=== PATIENT | male | born 1945 | race Caucasian/White ===

== ENCOUNTER 2021-01-01 11:23 | Emergency (ER) | payer OTHER ==
[~2021-01-01] VITALS: Ht 190.5 cm; Wt 92.7 kg
[2021-01-01 11:38] VITALS: Ht 190.5 cm; Wt 92.7 kg
[2021-01-01] MEDS ORDERED: CYMBALTA20 MG PO (11:41)
[2021-01-01] MEDS ORDERED: BAYER CHEWABLE81 MG PO (11:41)
[2021-01-01] MEDS ORDERED: LISINOPRIL10 MG PO (11:41)
[2021-01-01] MEDS ORDERED: ZYLOPRIM100 MG PO (11:42)
[2021-01-01] MEDS ORDERED: GABAPENTIN100 MG PO (11:42)
[2021-01-01] MEDS ORDERED: NORVASC5 MG PO (11:43)
[2021-01-01] MEDS ORDERED: TRAZODONE HCL150 MG PO (11:43)
[2021-01-01] MEDS ORDERED: METOPROLOL TART50 MG PO ×2 (11:43→12:07)
[2021-01-01 12:06] LABS: BASOPHILS 1.3 % (0-2); EOSINOPHILS 1.9 % (0-7); HEMATOCRIT 42.1 % (42.0-54.0); HEMOGLOBIN 14.2 g/dL (13.5-17.5); LYMPHOCYTES 22.2 % (15-50); MCHC 33.6 g/dL (31.0-37.0); MEAN PLATELET VOLUME 9.1 fL (7.4-10.4); MONOCYTES 8.6 % (2-11); PLATELET COUNT 140 10x3/uL (130-400); RBC 4.43 10x6/uL (4.20-6.10); RDW 15.8 % (11.5-14.5); WBC 6.5 10x3/uL (4.8-10.8)
[2021-01-01] MEDS ORDERED: CYMBALTA60 MG PO (12:07)
[2021-01-01 12:17] LABS: CALC OSMOLALITY 286 mosm/kg (275-300); CALCIUM 8.6 mg/dL (8.5-10.1); CARBON DIOXIDE 27.2 mmol/L (21.0-32.0); CHLORIDE - SERUM 108 mmol/L (98-107); CREATININE - SERUM 1.1 mg/dL (0.6-1.3); GLUCOSE 135 mg/dL (74-106); POTASSIUM - SERUM 4.1 mmol/L (3.5-5.1); SODIUM 142 mmol/L (136-145); UREA NITROGEN 19 mg/dL (7-18); eGFR NON AFRICAN AMERICAN 69 mL/min (90-120)
[2021-01-01 12:35] LABS: ALBUMIN 3.5 g/dL (3.4-5.0); ALKALINE PHOSPHATASE 86 U/L (30-120); ALT (SGPT) 51 U/L (10-68); BILIRUBIN - TOTAL 0.57 mg/dL (0.2-1.3); CKMB 0.4 U/L (0.0-3.6); CREATINE KINASE 37 UL (21-232); MAGNESIUM - SERUM 1.8 mg/dL (1.8-2.4); PROTEIN - SERUM 7.3 g/dL (6.4-8.2); THYROID STIMULATING HORMONE 1.08 uIU/mL (0.36-3.74); TROPONIN-I < 0.017 ng/mL (0.000-0.060)
[2021-01-01 12:40] LABS: APTT 27.3 SECONDS (22.8-39.4); INR 1.14 (0.85-1.17); PROTIME 13.5 SECONDS (11.6-15.0)
[2021-01-01 14:12] VITALS: BP 154/84
== END 2021-01-01 15:24 | disposition home or self-care (01) ==
LOC: D.ER 11:23
PROVIDERS: Family Medicine
DX: R20.0 Anesthesia of skin (principal); R20.2 Paresthesia of skin; I10 Essential (primary) hypertension; Z95.1 Presence of aortocoronary bypass graft